=== PATIENT | male | born 1970 | race Caucasian/White ===

== ENCOUNTER 2021-10-02 16:13 | Emergency (ER) | payer OTHER ==
[~2021-10-02] VITALS: Ht 172.7 cm; Wt 81.6 kg
[2021-10-02] MEDS ORDERED: MD PARA B/P (16:24)
[2021-10-02] MEDS ORDERED: ZITHROMAX500 MG PO (20:24)
== END 2021-10-02 21:24 | disposition home or self-care (01) ==
LOC: ER 16:13
DX: R51.9 Headache, unspecified (principal)